=== PATIENT | male | born 1990 | race American Indian/Alaskan Native ===

== ENCOUNTER 2017-10-05 11:17 | Emergency (ER) | payer BC ==
[2017-10-05 13:17] LABS: BASO % 0.2 % (0.0-2.0); EOS % 0.1 % (0.0-4.0); LYMPH # 2.2 K/uL (1.0-4.3); LYMPH % 25.6 % (20.0-40.0); MEAN CELL VOLUME 83.6 fl (80.0-94.0); MEAN CORPUSCULAR HGB CONC 33.5 g/dL (33.0-37.0); MEAN PLATELET VOLUME 7.9 fl (7.2-11.7); MONO # 1.2 K/uL (0.0-0.8); NEUT # 5.2 K/uL (1.8-7.0); NEUT % 60.1 % (50.0-75.0); NRBC % 0.1 % (0.0-0.0); RBC 5.37 Mil/uL (4.40-5.90); RED CELL DISTRIBUTION WIDTH 13.2 % (11.5-14.5); WHITE BLOOD COUNT 8.7 K/uL (4.8-10.8)
--- NOTE | 2017-10-05 13:28 | ED PDOC ---
HPI: General Adult Time Seen by Provider: 10/05/17 11:33 Chief Complaint (Nursing): ENT Problem Chief Complaint (Provider): sent from urgent care for abnormal EKG History Per: Patient History/Exam Limitations: no limitations Current Symptoms Are (Timing): Still Present Severity: None Recently: Treated By A Physician Additional Complaint(s): 27yo male sent from urgent care center for abnormal EKG. He presented there with URI symptoms of sore throat and congestion. Denies SOB, chest pain, syncope , headache, dizziness or exercise intolerance. Denies family history of any cardiac issues or sudden . Denies drug use. Past Medical History Reviewed: Historical Data, Nursing Documentation, Vital Signs Vital Signs: Last Vital Signs Temp 97 F L 10/05/17 13:52 Pulse 74 10/05/17 13:52 Resp 19 10/05/17 13:52 BP 124/75 10/05/17 13:52 Pulse Ox 98 10/05/17 13:52 - Medical History PMH: Depression Denies: Diabetes (Patient denied and does not know family hx), Hepatitis ( Patient denied and does not know family hx), HIV (Patient denied and does not know family hx), HTN (Patient denied and does not know family hx), Seizures ( Patient denied and does not know family hx), Sexually Transmitted Disease ( Patient denied and does not know family hx) - Family History Family History: States: Unknown Family Hx - Social History Current smoker - smoking cessation education provided: No - Immunization History Hx Tetanus Toxoid Vaccination: No Hx Influenza Vaccination: No Hx Pneumococcal Vaccination: No - Home Medications Home Medications: Ambulatory Orders Medication Instructions Recorded No Known Home Med [No Known Home 02/11/13 Med] - Allergies Allergies/Adverse Reactions: Allergies Allergy/AdvReac Type Severity Reaction Status Date / Time No Known Allergies Allergy Verified 10/05/17 11:30 Review of Systems ROS Statement: Except As Marked, All Systems Reviewed And Found Negative Constitutional: Negative for: Fever ENT: Negative for: Throat Pain Cardiovascular: Negative for: Chest Pain, Palpitations Respiratory: Negative for: Cough, Shortness of Breath Gastrointestinal: Negative for: Nausea, Abdominal Pain Genitourinary Male: Negative for: Dysuria Musculoskeletal: Negative for: Neck Pain Skin: Negative for: Rash, Lesions, Jaundice Neurological: Negative for: Weakness, Numbness Psych: Negative for: Anxiety Physical Exam - Reviewed Nursing Documentation Reviewed: Yes Vital Signs Reviewed: Yes - Physical Exam Appears: Positive for: Well, Non-toxic, No Acute Distress Head Exam: Positive for: ATRAUMATIC, NORMAL INSPECTION, NORMOCEPHALIC Skin: Positive for: Normal Color, Warm, DRY Eye Exam: Positive for: EOMI, Normal appearance, PERRL ENT: Positive for: Normal ENT Inspection Neck: Positive for: Normal, Painless ROM Cardiovascular/Chest: Positive for: Regular Rate, Rhythm Respiratory: Positive for: CNT, Normal Breath Sounds Pulses-Radial (L): 3+/4+ Pulses-Radial (R): 3+/4+ Gastrointestinal/Abdominal: Positive for: Soft. Negative for: Tenderness Back: Positive for: Normal Inspection Extremity: Positive for: Normal ROM Neurologic/Psych: Positive for: Alert, Oriented. Negative for: Motor/Sensory Deficits - Laboratory Results Result Diagrams: 10/05/17 13:05 10/05/17 13:05 - ECG O2 Sat by Pulse Oximetry: 99 Medical Decision Making Medical Decision Making: EKG from urgent care reviewed and sinus with likely early repolarization EKG here also sinus at 73 with early repolarization basic labs reviewed and negative remains asymptomatic refer PMD/ cardio for further eval as needed Disposition - Clinical Impression Clinical Impression: URI (upper respiratory infection), History of EKG - Patient ED Disposition Is Patient to be Admitted: No - Disposition Disposition: Routine/Home Disposition Time: 13:30 Condition: STABLE Additional Instructions: FOLLOWUP WITH YOUR DOCTOR DIRECTED AND RETURN TO ER FOR ANY CHEST PAIN, DIFFICULTY BREATHING, DIZZINESS OR ANY CONCERN. Instructions: Electrocardiogram, Viral Upper Respiratory Infection, Adult (DC) , ECG and Stress Test Forms: Indexing (Wallisian)
[2017-10-05 13:36] LABS: BLOOD UREA NITROGEN 18 mg/dl (9-20); CALCIUM 9.3 mg/dL (8.4-10.2); GFR AFRICAN-AMERICAN > 60; GFR NON-AFRICAN AMERICAN > 60
[2017-10-05 13:46] VITALS: RESP 19; TEMP 97
[2017-10-05 13:52] VITALS: BP 124/75; PULSE 74
[2017-10-06 10:41] VITALS: O2SAT 99
== END 2017-10-05 13:55 | disposition home or self-care (01) ==
LOC: H.ER 11:17
DX: J06.9 Acute upper respiratory infection, unspecified (principal); R94.31 Abnormal electrocardiogram [ECG] [EKG]